=== PATIENT | male | born 1955 | race Caucasian/White ===

== ENCOUNTER 2018-03-30 21:43 | Emergency (ER) | payer OTHER ==
--- OUTSIDE RECORDS SUMMARY | 2018-03-30 21:46 | XMS REPORT | Continuity of Care Document ---
:1955 Author Organization Interface Problems Problem Status Onset Classification Date Comments Source Date Reported Unspecified Active Problem 03/07/2017 [place] hyperlipidemia [place] HTN Active Problem 03/07/2017 [place] Diabetes mellitus, Active Problem 03/07/2017 [place] not stated as [place]ris uncontrolled Chest pain, Active Problem 03/07/2017 [place] Tightness , [place]ris Pressure Medications Medication Details Route Status Patient Ordering Order Source Instructions Provider Date Allergies, Adverse Reactions, Alerts Substance Category Reaction Severity Reaction Status Date Comments Source type Reported Immunizations Immunization Date Given Site Status Last Updated Comments Source Results Order Results Value Reference Date Interpretation Comments Source Name Range Vital Signs Vital Sign Value Date Comments Source Encounters Location Location Encounter Encounter Reason Attending ADM DC Status Source Details Type Number For Provider Date Date Visit Procedures Procedure Code Date Perfomer Comments Source
--- OUTSIDE RECORDS SUMMARY | 2018-03-30 21:46 | XMS REPORT | Clinical Summary ---
:1955 Author Organization [facility] Address [address] [place] [address] Care Team Providers Name Role Phone Jose Sims MD Primary Care Provider Allergies Active Allergy Reactions Severity Noted Date Comments Sulfamethoxazole Rash Medium Tamsulosin Other (See Comments) Low 01/19/2018 colds Medications Medication Sig Dispensed Refills Start End Date Status Date insulin lispro Inject 0 Active (HUMALOG) 100 subcutaneously unit/mL injection continuous Insulin pump . buPROPion Take 150 mg by 0 Active (WELLBUTRIN XL) mouth daily. 150 MG 24 hr tablet testosterone Inject 4 mg 0 Active enanthate intramuscularly (DELATESTRYL) 200 every 7 days. mg/mL injection cholecalciferol, Take 50,000 Units 0 Active vitamin D3, by mouth once a 50,000 unit Tab week. coenzyme Q10 100 Take 100 mg by 0 Active mg capsule mouth daily. clindamycin Take 1 capsule (300 21 capsule 0 03/12/19 Discontinued (CLEOCIN) 300 MG mg total) by mouth 9 capsule 3 (three) times daily for 7 days. traMADol (ULTRAM) Take 2 tablets (100 30 tablet 0 03/22/19 50 mg tablet mg total) by mouth 9 every 6 (six) hours as needed for up to 10 days. Max Daily Amount: 400 mg docusate sodium Take 1 capsule (100 10 capsule 0 03/22/19 (COLACE) 100 MG mg total) by mouth 9 capsule 2 (two) times daily for 10 days. ciprofloxacin HCl Take 1 tablet (500 10 tablet 0 03/17/19 (CIPRO) 500 MG mg total) by mouth 9 19 tablet 2 (two) times daily for 5 days. Active Problems Problem Noted Date Erectile dysfunction 03/11/2018 Encounters Date Type Specialty Care Team Description 03/28/2018 Hospital Encounter [place] (obstructive sleep apnea); MD [place] Intolerance of continuous positive airway pressure (CPAP) ventilation 03/11/2018 Anesthesia Event Isaak Rowe MD 03/11/2018 Surgery Helio Devi, RODOLFO,YEFRI JAIME 03/11/2018 - Hospital Encounter General Internal Helio Devi, 03/12/2018 Medicine 03/06/2018 Hospital Encounter Cardiology Helio Devi MD 03/06/2018 Hospital Encounter Helio Devi MD 03/06/2018 Hospital Encounter Pre-Admission Helio Devi Testing MD 03/06/2018 Orders Only General Internal Medicine 02/27/2018 Orders Only Helio Devi MD 02/25/2018 Outside Orders Velma Duran, BATCH MIXER, [employer]ANG[employer] 02/25/2018 Orders Only Renee [place] (obstructive sleep apnea) (Primary Dx ); Velma Augustin RRT, Intolerance of continuous positive airway pressure (CPAP ) ventilation [facility] 01/19/2018 Hospital Encounter Pre-Admission Helio Devi Testing MD 01/19/2018 Outside Orders Helio Devi MD 01/19/2018 Orders Only Helio Devi MD after 03/29/2017 Social History Tobacco Use Types Packs/Day Years Used Date Never Smoker Smokeless Tobacco: Never Used Alcohol Use Drinks/Week oz/Week Comments No Alcohol Habits Answer Date Recorded How often do you have a drink containing alcohol? Never 01/19/2018 How many drinks containing alcohol do you have on a typical Not asked day when you are drinking? How often do you have six or more drinks on one occasion? Not asked Sex Assigned at Date Recorded Not on file Job Start Date Occupation Industry Not on file Not on file Not on file Travel History Travel Start Travel End No recent travel history available. Last Filed Vital Signs Vital Sign Reading Time Taken Blood Pressure 130/63 03/12/2018 11:14 AM [employer] Pulse 70 03/12/2018 11:14 AM [employer] Temperature 37.2 C (98.9 F) 03/12/2018 11:14 AM [employer] Respiratory Rate 18 03/12/2018 11:14 AM [employer] Oxygen Saturation 93% 03/12/2018 11:14 AM [employer] Inhaled Oxygen Concentration - - Weight 94.8 kg (209 lb) 03/11/2018 7:08 AM [employer] Height 182.9 cm (6') 03/11/2018 7:08 AM [employer] Body Mass Index 28.35 03/11/2018 7:08 AM [employer] Plan of Treatment Not on file Implants Implanted Type Area It Help Desk Analyst Device Shelf Model / Identifier Expiration Serial / Date Lot Kit Asm Titan Pnle Imp [id number] - [id number] Urology N/A: Penis COLOPLAST 09/28/2022 [id number] / Implanted: Qty: 1 on 03/11/2018 by Helio Devi MD A/S:COLOPLAST / [id number] [place] Titan Cl 125cc [id number] - [id number] Urology Right: COLOPLAST [id number] / Implanted: Qty: 1 on 03/11/2018 by Helio Devi MD Abdomen A/S:COLOPLAST / [id number] Titan Tch Rell Scrtl Cyl 20 [id number] - [id number] Urology N/A: Penis COLOPLAST 09/28/2022 [id number] / Implanted: Qty: 1 on 03/11/2018 by Helio Devi MD A/S:COLOPLAST / [id number] Procedures Procedure Name Priority Date/Time Associated Diagnosis Comments REPORT OF PROCEDURE - 03/28/2018 11:01 ENDOSCOPY SCAN AM [employer] POCT-GLUCOSE METER Routine 03/12/2018 7:32 Results for this AM [employer] procedure are in the results section. CBC W/PLT COUNT & Routine 03/12/2018 5:17 Results for this AUTO DIFFERENTIAL AM [employer] procedure are in the results section. CBC W/PLT COUNT & Routine 03/12/2018 5:17 Results for this AUTO DIFFERENTIAL AM [employer] procedure are in the results section. BASIC METABOLIC PANEL Routine 03/12/2018 5:17 Results for this (7) AM [employer] procedure are in the results section. POCT-GLUCOSE METER Routine 03/11/2018 10:42 Results for this PM [employer] procedure are in the results section. POCT-GLUCOSE METER Routine 03/11/2018 6:41 Results for this PM [employer] procedure are in the results section. POCT-GLUCOSE METER Routine 03/11/2018 10:35 Results for this AM [employer] procedure are in the results section. IMPLANT,GUPP 03/11/2018 8:00 Erectile AM [employer] dysfunction, unspecified erectile dysfunction type Case Notes HR Special Needs Notified Jose Antonio on 03/09 @ 0725---mp; jose antonio confirmed on 03/09 @ 0728---mp POCT-GLUCOSE METER Routine 03/11/2018 7:30 AM [employer] ECG 12-LEAD Routine 03/06/2018 4:33 PM [employer] Procedure Note - Interface, External Ris In - 03/06/2018 4:39 PM [employer] Ventricular Rate 65 BPM Atrial Rate 65 BPM P-R Interval 146 ms QRS Duration 86 ms Q-T Interval 396 ms QTC Calculation(Bazett) 411 ms P Bernard 42 degrees R Bernard 37 degrees T Bernard 3 degrees Normal sinus rhythm Normal ECG No previous ECGs available ECG 12-LEAD Routine 03/06/2018 4:33 PM [employer] URINALYSIS W/ MICROSCOPIC Routine 03/06/2018 4:29 PM [employer] HEMOGLOBIN AND HEMATOCRIT Routine 03/06/2018 4:29 PM [employer] BASIC METABOLIC PANEL (7) Routine 03/06/2018 4:29 PM [employer] URINE CULTURE Routine 03/06/2018 4:29 PM [employer] XR CHEST 2 VIEWS Routine 01/19/2018 3:35 PM [employer] URINALYSIS W/ MICROSCOPIC Routine 01/19/2018 3:13 PM [employer] URINE CULTURE Routine 01/19/2018 3:13 PM [employer] CBC W/PLT COUNT & AUTO Routine 01/19/2018 3:12 PM [employer] Results for this DIFFERENTIAL procedure are in the results section. BASIC METABOLIC PANEL (7) Routine 01/19/2018 3:12 PM [employer] CBC W/PLT COUNT & AUTO Routine 01/19/2018 3:12 PM [employer] Results for this DIFFERENTIAL procedure are in the results section. after 03/29/2017 Results EKG-SCANNED (03/28/2018 11:01 AM [employer]) Narrative Performed At POC-Glucose meter (03/12/2018 7:32 AM [employer])Only the most recent of5 resultswithin the time period is included. POC-Glucose Meter 208 (H)Comment: TESTED AT 70 - 110 mg/dL [facility] [address] [facility] [address] Specimen Blood Performing Organization Address City/State/Zipcode Phone Number [address] [address] [phone] CENTER CBC with platelet count + automated diff (03/12/2018 5:17 AM [employer])Only the most recent of2 resultswithin the time period is included. WBC 10.3 3.5 - 10.5 K/L [facility] RBC 4.50 (L) 4.63 - 6.08 M/L [facility] Hemoglobin 13.3 (L) 13.7 - 17.5 GM/DL [facility] Hematocrit 39.9 (L) 40.1 - 51.0 % [facility] MCV 88.7 79.0 - 92.2 fL [facility] MCH 29.6 25.7 - 32.2 pg [facility] MCHC 33.3 32.3 - 36.5 GM/DL [facility] RDW 13.7 11.6 - 14.4 % [facility] Platelets 173 150 - 450 K/CU MM [facility] MPV 11.0 9.4 - 12.4 fL [facility] nRBC 0 0 - 0 /100 WBC [facility] % Neutros 78 % [facility] % Lymphs 12 % [facility] % Monos 9 % [facility] % Eos 0 % [facility] % Baso 0 % [facility] # Neutros 7.98 (H) 1.78 - 5.38 K/L [facility] # Lymphs 1.27 (L) 1.32 - 3.57 K/L [facility] # Monos 0.92 (H) 0.30 - 0.82 K/L [facility] # Eos 0.03 (L) 0.04 - 0.54 K/L [facility] # Baso 0.03 0.01 - 0.08 K/L [facility] Immature Granulocytes-Relative 0 0 - 1 % [facility] Specimen Blood Performing Organization Address City/State/Zipcode Phone Number [facility] [address] [place] [address] [phone] CENTER Basic metabolic panel (03/12/2018 5:17 AM [employer])Only the most recent of3 resultswithin the time period is included. Sodium 135 (L) 136 - 145 meq/L [facility] Potassium 4.0 3.5 - 5.1 meq/L [facility] Chloride 104 98 - 107 meq/L [facility] CO2 23 22 - 29 meq/L [facility] BUN 11 7 - 21 mg/dL [facility] Creatinine 0.97 0.57 - 1.25 mg/dL [facility] Glucose 164 (H) 70 - 105 mg/dL [facility] Calcium 8.6 8.4 - 10.2 mg/dL [facility] EGFR 78Comment: ESTIMATED GFR IS mL/min/1.73 sq m [facility] NOT ACCURATE [facility] CLEARANCE IN PREDICTING GLOMERULAR FILTRATION RATE. ESTIMATED GFR IS NOT APPLICABLE FOR DIALYSIS PATIENTS. Specimen Blood Performing Organization Address City/State/[facility] Phone Number [place] [phone] [place] [address] [place] Electrocardiogram, 12-lead (03/06/2018 4:33 PM [employer]) Narrative Performed At Ventricular Rate 65 BPM GE MUSE Atrial Rate 65 BPM P-R Interval 146 ms QRS Duration 86 ms Q-T Interval 396 ms QTC Calculation(Bazett) 411 ms P Bernard 42 degrees R Bernard 37 degrees T Bernard 3 degrees Normal sinus rhythm Normal ECG No previous ECGs available Confirmed by MD GARRETT YOCHAI ([id number]) on 03/07/2018 6:24:56 AM Procedure Note Interface, External Ris In - 03/07/2018 6:25 AM [employer] Ventricular Rate 65 BPM Atrial Rate 65 BPM P-R Interval 146 ms QRS Duration 86 ms Q-T Interval 396 ms QTC Calculation(Bazett) 411 ms P Bernard 42 degrees R Bernard 37 degrees T Bernard 3 degrees Normal sinus rhythm Normal ECG No previous ECGs available Confirmed by MD GARRETT YOCHAI ([id number]) on 03/07/2018 6:24:56 AM Performing Organization Address [facility] Phone Number GE MUSE Hemoglobin and hematocrit (03/06/2018 4:29 PM [employer]) Hemoglobin 15.6 13.7 - 17.5 GM/DL [facility] Hematocrit 47.7 40.1 - 51.0 % [facility] Specimen Blood Performing Organization Address [facility] Phone Number [address] [address] [place] Urinalysis w/ Microscopic (03/06/2018 4:29 PM [employer])Only the most recent of2 resultswithin the time period is included. Color, UA Light Yellow [facility] Clarity, UA Clear [facility] Specific [place], UA 1.002 1.001 - 1.035 [facility] pH, UA 7.0 5.0 - 8.0 [facility] Protein, UA Negative Negative [facility] Glucose, UA Negative Negative [facility] Ketones, UA Negative Negative [facility] Bilirubin, UA Negative Negative [facility] Blood, UA Negative Negative [facility] Nitrite, UA Negative Negative [facility] Leukocytes, UA Negative Negative [facility] Urobilinogen, UA 0.2 0.2 - 1.0 mg/dL [facility] RBC, UA 0 /HPF [facility] WBC, UA <1 /HPF [facility] Specimen Source [facility] Specimen Urine Performing Organization Address City/[facility]/Zipcode Phone Number [address] [phone] [place] Urine culture (03/06/2018 4:29 PM [employer])Only the most recent of2 resultswithin the time period is included. Result No growth [facility] Specimen Urine - Urine, Clean Catch Performing Organization Address City/[facility]/Zipcode Phone Number [address] [phone] [place] XR chest 2 views (01/19/2018 3:35 PM [employer]) Narrative Performed At FINAL REPORT GE RIS PA and Lateral views of the chest dated 01/19/2018 Clinical information: Pre-op Comment:Heart is normal in size. Pulmonary vasculature is unremarkable. Lungs are clear. No pulmonary infiltrate or pleural effusion is present. Impression:No active cardiopulmonary disease. Signed: Stephanie Mar MD Report Verified Date/Time:01/19/2018 16:22:16 Reading Location: [address] Radiology Reading Room Procedure Note Interface, External Ris In - 01/19/2018 4:24 PM [employer] FINAL REPORT PA and Lateral views of the chest dated 01/19/2018 Clinical information: Pre-op Comment: Heart is normal in size. Pulmonary vasculature is unremarkable. Lungs are clear. No pulmonary infiltrate or pleural effusion is present. Impression: No active cardiopulmonary disease. Signed: Stephanie Mar MD Report Verified Date/Time: 01/19/2018 16:22:16 Reading Location: [address] Radiology Reading Room Performing Organization Address City/State/Zipcode Phone Number GE RIS after 03/29/2017 Insurance Payer Benefit Plan / Group Subscriber ID Type Phone Address [facility] HMO POS SELECT xxxxxxxxx HMO/POS CARE CHOICE Advance Directives For more information, please contact:[address] [phone] Code Status Date Activated Date Inactivated Comments Full Code 03/11/2018 1:24 PM This code status was determined by: Patient
--- OUTSIDE RECORDS SUMMARY | 2018-03-30 21:46 | XMS REPORT ---
:1955 Author Organization e[employer] Care Team Providers Name Role Phone Wilfredo Young Provider Role Unavailable Allergies No Known Allergies Problems Problem Type Condition Code Onset Dates Condition Status Problem Unspecified hyperlipidemia 272.4 Active Problem HTN 401.1 Active Problem Diabetes mellitus, not stated as 250.01 Active uncontrolled Problem Chest pain, Tightness , Pressure 786.59 Active Medications No Known Medications Results No Known Results Summary Purpose eClinicalWorks Submission
--- OUTSIDE RECORDS SUMMARY | 2018-03-30 21:46 | XMS REPORT ---
:1955 Author Organization [facility] Address [address] [place] [address] [address] [place] [address] Care Team Providers Name Role Phone DALJIT BERNARDO Unavailable Unavailable Problems This patient has no known problems. Allergies, Adverse Reactions, Alerts This patient has no known allergies or adverse reactions. Medications This patient has no known medications. Results Test Description Test Time Test Comments Text Results Atomic Results Result Comments POCT-GLUCOSE METER 2018-03-12 07:39:00 Test Item Value Reference Range Comments POC-GLUCOSE METER (BEAKER) (test 208 mg/dL 70-110 TESTED AT [facility] [address] [place] [address] scvy=[id number]) [facility] [id number] BASIC METABOLIC [id number] 06:33:00 Test Item Value Reference Range Comments SODIUM (BEAKER) (test 135 meq/L 136-145 kuds=077) POTASSIUM (BEAKER) (test 4.0 meq/L 3.5-5.1 wjuv=139) CHLORIDE (BEAKER) (test 104 meq/L 98-107 aeho=641) CO2 (BEAKER) (test 23 meq/L 22-29 sdad=886) BLOOD UREA NITROGEN 11 mg/dL 7-21 (BEAKER) (test hxbp=205) CREATININE (BEAKER) (test 0.97 mg/dL 0.57-1.25 rsus=802) GLUCOSE RANDOM (BEAKER) 164 mg/dL 70-105 (test weco=890) CALCIUM (BEAKER) (test 8.6 mg/dL 8.4-10.2 pemr=962) EGFR (BEAKER) (test 78 mL/min/1.73 sq m ESTIMATED GFR IS NOT swsi=9496) ACCURATE CREATININE CLEARANCE IN PREDICTING GLOMERULAR FILTRATION RATE. ESTIMATED GFR IS NOT APPLICABLE FOR DIALYSIS PATIENTS. CBC W/PLT COUNT & AUTO [id number] 05:39:00 Test Item Value Reference Range Comments WHITE BLOOD CELL COUNT (BEAKER) (test snzw=926) 10.3 K/ L 3.5-10.5 RED BLOOD CELL COUNT (BEAKER) (test yvcd=036) 4.50 M/ L 4.63-6.08 HEMOGLOBIN (BEAKER) (test ajzx=260) 13.3 GM/DL 13.7-17.5 HEMATOCRIT (BEAKER) (test bkjk=213) 39.9 % 40.1-51.0 MEAN CORPUSCULAR VOLUME (BEAKER) (test tpwp=697) 88.7 fL 79.0-92.2 MEAN CORPUSCULAR HEMOGLOBIN (BEAKER) (test 29.6 pg 25.7-32.2 bcen=758) MEAN CORPUSCULAR HEMOGLOBIN CONC (BEAKER) (test 33.3 GM/DL 32.3-36.5 kilp=006) RED CELL DISTRIBUTION WIDTH (BEAKER) (test 13.7 % 11.6-14.4 gwce=822) PLATELET COUNT (BEAKER) (test fjzi=330) 173 K/CU MM 150-450 MEAN PLATELET VOLUME (BEAKER) (test tymo=877) 11.0 fL 9.4-12.4 NUCLEATED RED BLOOD CELLS (BEAKER) (test 0 /100 WBC 0-0 njhp=742) NEUTROPHILS RELATIVE PERCENT (BEAKER) (test 78 % gglg=111) LYMPHOCYTES RELATIVE PERCENT (BEAKER) (test 12 % qyvg=438) MONOCYTES RELATIVE PERCENT (BEAKER) (test 9 % znzv=826) EOSINOPHILS RELATIVE PERCENT (BEAKER) (test 0 % uspt=735) BASOPHILS RELATIVE PERCENT (BEAKER) (test 0 % gsoa=630) NEUTROPHILS ABSOLUTE COUNT (BEAKER) (test 7.98 K/ L 1.78-5.38 jevb=825) LYMPHOCYTES ABSOLUTE COUNT (BEAKER) (test 1.27 K/ L 1.32-3.57 hryy=157) MONOCYTES ABSOLUTE COUNT (BEAKER) (test 0.92 K/ L 0.30-0.82 pvrs=349) EOSINOPHILS ABSOLUTE COUNT (BEAKER) (test 0.03 K/ L 0.04-0.54 tdmf=689) BASOPHILS ABSOLUTE COUNT (BEAKER) (test 0.03 K/ L 0.01-0.08 awsp=847) IMMATURE GRANULOCYTES-RELATIVE PERCENT (BEAKER) 0 % 0-1 (test yhzh=4412) POCT-GLUCOSE [id number] 22:52:00 Test Item Value Reference Range Comments POC-GLUCOSE METER (BEAKER) 205 mg/dL 70-110 TESTED AT [address] (test ygbr=5565) [place] [id number] POCT-GLUCOSE [id number] 18:45:00 Test Item Value Reference Range Comments POC-GLUCOSE METER (BEAKER) 172 mg/dL 70-110 TESTED AT [address] (test xpgr=3344) [place] [id number] POCT-GLUCOSE [id number] 10:37:00 Test Item Value Reference Range Comments POC-GLUCOSE METER (BEAKER) 177 mg/dL 70-110 TESTED AT [address] (test vnzb=5552) [place] [address] POCT-GLUCOSE [id number] 07:32:00 Test Item Value Reference Range Comments POC-GLUCOSE METER (BEAKER) 159 mg/dL 70-110 TESTED AT [address] (test zqzx=6329) [place] [address] URINE [id number] 11:54:00 Test Item Value Reference Range Comments CULTURE (BEAKER) (test tafa=4833) No growth BASIC METABOLIC [id number] 17:11:00 Test Item Value Reference Range Comments SODIUM (BEAKER) (test 138 meq/L 136-145 jwkq=575) POTASSIUM (BEAKER) (test 4.4 meq/L 3.5-5.1 Specimen moderately ojqf=474) hemolyzed CHLORIDE (BEAKER) (test 102 meq/L 98-107 qpoq=067) CO2 (BEAKER) (test 29 meq/L 22-29 yoyt=520) BLOOD UREA NITROGEN 15 mg/dL 7-21 (BEAKER) (test ocgi=878) CREATININE (BEAKER) (test 1.13 mg/dL 0.57-1.25 Specimen moderately ysaa=551) hemolyzed GLUCOSE RANDOM (BEAKER) 131 mg/dL 70-105 (test pnxf=178) CALCIUM (BEAKER) (test 9.7 mg/dL 8.4-10.2 yguk=056) EGFR (BEAKER) (test 66 mL/min/1.73 sq m ESTIMATED GFR IS NOT qfsr=1361) ACCURATE CREATININE CLEARANCE IN PREDICTING GLOMERULAR FILTRATION RATE. ESTIMATED GFR IS NOT APPLICABLE FOR DIALYSIS PATIENTS. URINALYSIS W/ [id number] 16:58:00 Test Item Value Reference Range Comments COLOR (BEAKER) (test qjro=261) Light Yellow CLARITY (BEAKER) (test yskk=549) Clear SPECIFIC GRAVITY UA (BEAKER) (test yxtj=878) 1.002 1.001-1.035 PH UA (BEAKER) (test levt=382) 7.0 5.0-8.0 PROTEIN UA (BEAKER) (test jsbp=329) Negative Negative GLUCOSE UA (BEAKER) (test yyqg=203) Negative Negative KETONES UA (BEAKER) (test lttc=052) Negative Negative BILIRUBIN UA (BEAKER) (test tmam=527) Negative Negative BLOOD UA (BEAKER) (test ifig=486) Negative Negative NITRITE UA (BEAKER) (test atre=937) Negative Negative LEUKOCYTE ESTERASE UA (BEAKER) (test skpd=221) Negative Negative UROBILINOGEN UA (BEAKER) (test ejet=495) 0.2 mg/dL 0.2-1.0 RBC UA (BEAKER) (test kcpi=505) 0 /HPF WBC UA (BEAKER) (test friz=064) < /HPF SOURCE(BEAKER) (test hoke=6955) HEMOGLOBIN AND [id number] 16:53:00 Test Item Value Reference Range Comments HEMOGLOBIN (BEAKER) (test recv=180) 15.6 GM/DL 13.7-17.5 HEMATOCRIT (BEAKER) (test wkcx=676) 47.7 % 40.1-51.0 URINE [id number] 14:09:00 Test Item Value Reference Range Comments CULTURE (BEAKER) (test ENTEROCOCCUS SPECIES 10-19,000 col/mL mgdv=8856) Enterococcus species Ampicillin (test code=26) Linezolid (test code=40) Nitrofurantoin (test code=23) Tetracycline (test code=2) Vancomycin (test code=13) URINALYSIS W/ [id number] 16:22:00 Test Item Value Reference Range Comments COLOR (BEAKER) (test qqzc=625) Yellow CLARITY (BEAKER) (test muxn=863) Clear SPECIFIC GRAVITY UA (BEAKER) (test saph=086) 1.015 1.001-1.035 PH UA (BEAKER) (test fvnb=432) 6.5 5.0-8.0 PROTEIN UA (BEAKER) (test brmp=977) Negative Negative GLUCOSE UA (BEAKER) (test oqzi=776) Negative Negative KETONES UA (BEAKER) (test nqxx=800) Negative Negative BILIRUBIN UA (BEAKER) (test noxu=834) Negative Negative BLOOD UA (BEAKER) (test yayj=715) Small Negative NITRITE UA (BEAKER) (test gqsq=407) Negative Negative LEUKOCYTE ESTERASE UA (BEAKER) (test djxz=613) Negative Negative UROBILINOGEN UA (BEAKER) (test pdje=577) 0.2 mg/dL 0.2-1.0 RBC UA (BEAKER) (test yeog=220) 4 /HPF WBC UA (BEAKER) (test hvzy=395) < /HPF SOURCE(BEAKER) (test cxbg=9950) RAD, CHEST, 2 [id number] 16:22:00Reason for exam:->Pre-opFINAL REPORT PA and Lateral views of the chest dated 01/19/2018 Clinical information: Pre-op Comment: Heart is normal in size. Pulmonary vasculature is unremarkable. Lungs are clear. No pulmonary infiltrate or pleural effusion is present. Impression: No active cardiopulmonary disease. Signed: Stephanie Mar Verified Date/Time: 01/19/2018 16:22:16 Reading Location: [address] Radiology Reading Room BASI METABOLIC [id number] 16:09: 00 Test Item Value Reference Range Comments SODIUM (BEAKER) (test 138 meq/L 136-145 kjgf=685) POTASSIUM (BEAKER) (test 4.2 meq/L 3.5-5.1 Specimen slightly sgcy=158) hemolyzed CHLORIDE (BEAKER) (test 101 meq/L 98-107 zcac=889) CO2 (BEAKER) (test 28 meq/L 22-29 ctnj=760) BLOOD UREA NITROGEN 17 mg/dL 7-21 (BEAKER) (test tznp=820) CREATININE (BEAKER) (test 1.22 mg/dL 0.57-1.25 Specimen slightly woqw=957) hemolyzed GLUCOSE RANDOM (BEAKER) 120 mg/dL 70-105 (test syks=832) CALCIUM (BEAKER) (test 9.8 mg/dL 8.4-10.2 ktkm=079) EGFR (BEAKER) (test 60 mL/min/1.73 sq m ESTIMATED GFR IS NOT lllf=7306) ACCURATE CREATININE CLEARANCE IN PREDICTING GLOMERULAR FILTRATION RATE. ESTIMATED GFR IS NOT APPLICABLE FOR DIALYSIS PATIENTS. CBC W/PLT COUNT & AUTO [id number] 15:58:00 Test Item Value Reference Range Comments WHITE BLOOD CELL COUNT (BEAKER) (test jgmr=470) 6.8 K/ L 3.5-10.5 RED BLOOD CELL COUNT (BEAKER) (test ilav=110) 5.43 M/ L 4.63-6.08 HEMOGLOBIN (BEAKER) (test hfyp=670) 16.1 GM/DL 13.7-17.5 HEMATOCRIT (BEAKER) (test wiyn=302) 48.4 % 40.1-51.0 MEAN CORPUSCULAR VOLUME (BEAKER) (test zqce=123) 89.1 fL 79.0-92.2 MEAN CORPUSCULAR HEMOGLOBIN (BEAKER) (test 29.7 pg 25.7-32.2 ltcp=371) MEAN CORPUSCULAR HEMOGLOBIN CONC (BEAKER) (test 33.3 GM/DL 32.3-36.5 tmyb=933) RED CELL DISTRIBUTION WIDTH (BEAKER) (test 14.5 % 11.6-14.4 xklk=952) PLATELET COUNT (BEAKER) (test tnnl=227) 223 K/CU MM 150-450 MEAN PLATELET VOLUME (BEAKER) (test azbt=198) 11.4 fL 9.4-12.4 NUCLEATED RED BLOOD CELLS (BEAKER) (test 0 /100 WBC 0-0 botv=548) NEUTROPHILS RELATIVE PERCENT (BEAKER) (test 65 % tcpu=844) LYMPHOCYTES RELATIVE PERCENT (BEAKER) (test 24 % vdlp=451) MONOCYTES RELATIVE PERCENT (BEAKER) (test 8 % xags=251) EOSINOPHILS RELATIVE PERCENT (BEAKER) (test 2 % hspi=494) BASOPHILS RELATIVE PERCENT (BEAKER) (test 1 % sgvj=832) NEUTROPHILS ABSOLUTE COUNT (BEAKER) (test 4.39 K/ L 1.78-5.38 pzvo=851) LYMPHOCYTES ABSOLUTE COUNT (BEAKER) (test 1.63 K/ L 1.32-3.57 xonf=237) MONOCYTES ABSOLUTE COUNT (BEAKER) (test 0.55 K/ L 0.30-0.82 wime=454) EOSINOPHILS ABSOLUTE COUNT (BEAKER) (test 0.13 K/ L 0.04-0.54 zvob=893) BASOPHILS ABSOLUTE COUNT (BEAKER) (test 0.05 K/ L 0.01-0.08 gtqd=811) IMMATURE GRANULOCYTES-RELATIVE PERCENT (BEAKER) 1 % 0-1 (test wibz=7794)
[2018-03-30] MEDS ORDERED: AZITHROMYCIN 250 MG TAB ONE (23:28)
--- NOTE | 2018-03-30 23:29 | ER ---
Nurse's Notes [facility] Name: Rajesh Moreira Age: 62 yrs Sex: Male : 1955 Arrival Date: 03/30/2018 Time: 22:13 Bed 19 Private MD: Diagnosis: Bronchitis, not specified as acute or chronic Presentation: 03/30 22:21 Presenting complaint: Patient states: he had recent surgery Mar 11 for a penile implant bb and started coughing today, feeling weak with mild pain in his legs and is concerned about an infection. Transition of care: patient was not received from another setting of care. Onset of symptoms was March 30, 2018. Risk Assessment: Do you want to hurt yourself or someone else? Patient reports no desire to harm self or others. Initial Sepsis Screen: Does the patient meet any 2 criteria? No. Patient's initial sepsis screen is negative. Does the patient have a suspected source of infection? No. Patient's initial sepsis screen is negative. Care prior to arrival: None. 22:21 Method Of Arrival: Ambulatory bb 22:21 Acuity: HOLLI 3 bb Historical: - Allergies: 22:24 Bactrim; bb - Home Meds: 22:24 Humalog Sub-Q [Active]; Novolog Sub-Q [Active]; testosterone [Active]; Vit C [Active]; bb Susan Oral [Active]; - PMHx: 22:24 Diabetes - IDDM; bb - PSHx: 22:24 Hernia repair; Knee surgery; penile implant; bb - Immunization history:: Adult Immunizations up to date, Flu vaccine is up to date. - Social history:: Smoking status: Patient/guardian denies using tobacco, Patient/guardian denies using alcohol, street drugs, Patient/guardian denies using The patient lives with family. - Ebola Screening: : No symptoms or risks identified at this time. - Family history:: not pertinent. Screenin:30 Abuse screen: Denies threats or abuse. Nutritional screening: No deficits noted. jb4 Tuberculosis screening: No symptoms or risk factors identified. Fall Risk None identified. Assessment: 22:30 General: Appears in no apparent distress. comfortable, Behavior is calm, cooperative, jb4 appropriate for age. Pain: Complains of pain in right leg and left leg Pain does not radiate. Pain currently is 2 out of 10 on a pain scale. Neuro: Level of Consciousness is awake, alert, obeys commands, Oriented to person, place, time, situation. Cardiovascular: Patient's skin is warm and dry. Respiratory: Reports cough that is non-productive, since This morning. Airway is patent Respiratory effort is even, unlabored, Respiratory pattern is regular, symmetrical, Breath sounds are clear bilaterally. GI: No signs and/or symptoms were reported involving the gastrointestinal system. : No signs and/or symptoms were reported regarding the genitourinary system. EENT: No signs and/or symptoms were reported regarding the EENT system. Derm: Skin is intact, Skin is pink, warm \T\ dry. Musculoskeletal: Circulation, motion, and sensation intact. 23:53 Reassessment: Patient appears in no apparent distress at this time. Patient and/or jb4 family updated on plan of care and expected duration. Pain level reassessed. Patient is alert, oriented x 3, equal unlabored respirations, skin warm/dry/pink. Vital Signs: 22:24 BP 142 / 81; Pulse 78; Resp 16 S; Temp 99(O); Pulse Ox 96% on R/A; Weight 93.89 kg (R); bb Height 6 ft. 0 in. (182.88 cm) (R); Pain 2/10; 23:53 BP 150 / 80; Pulse 79; Resp 16; Pulse Ox 98% on R/A; jb4 22:24 Body Mass Index 28.07 (93.89 kg, 182.88 cm) ED Course: 22:13 Patient arrived in ED. es 22:22 Triage completed. bb 22:24 Arm band placed on Patient placed in an exam room, on a stretcher, on pulse oximetry. bb 22:30 Patient has correct armband on for positive identification. Bed in low position. Call jb4 light in reach. Side rails up X 1. Pulse ox on. NIBP on. 22:51 Robi Perez RN is Primary Nurse. jb4 22:55 Emmanuel Contreras MD is Attending Physician. ma2 23:54 No provider procedures requiring assistance completed. Patient did not have IV access jb4 during this emergency room visit. Administered Medications: 23:19 Drug: AZITHromycin 500 mg Route: PO; jb4 23:54 Follow up: Response: No adverse reaction jb4 Outcome: 23:28 Discharge ordered by . saulo 23:54 Discharged to home ambulatory. jb4 23:54 Condition: stable 23:54 Discharge instructions given to patient, Instructed on discharge instructions, follow up and referral plans. medication usage, Demonstrated understanding of instructions, follow-up care, medications, Prescriptions given X 3. 23:56 Patient left the ED. jb4 Signatures: Iris Dey Brenda, RN RN Robi Soto RN RN jb4 Emmanuel Contreras MD MD ma2
--- NOTE | 2018-03-30 23:29 | EDPHYS ---
Physician Documentation [facility] Name: Rajesh Moreira Age: 62 yrs Sex: Male : 1955 Arrival Date: 03/30/2018 Time: 22:13 Bed 19 Private MD: ED Physician Emmanuel Contreras HPI: 03/30 23:26 This 62 yrs old Male presents to ER via Ambulatory with complaints of Cough. ma2 23:26 Onset: The symptoms/episode began/occurred gradually, 1 day(s) ago. Severity of ma2 symptoms: At their worst the symptoms were moderate, in the emergency department the symptoms are unchanged. Associated signs and symptoms: Pertinent positives: rhinorrhea, Pertinent negatives: chest pain, fever, rhinorrhea, vomiting. The patient has not experienced similar symptoms in the past. here with dry cough . Historical: - Allergies: 22:24 Bactrim; bb - Home Meds: 22:24 Humalog Sub-Q [Active]; Novolog Sub-Q [Active]; testosterone [Active]; Vit C [Active]; bb Susan Oral [Active]; - PMHx: 22:24 Diabetes - IDDM; bb - PSHx: 22:24 Hernia repair; Knee surgery; penile implant; bb - Immunization history:: Adult Immunizations up to date, Flu vaccine is up to date. - Social history:: Smoking status: Patient/guardian denies using tobacco, Patient/guardian denies using alcohol, street drugs, Patient/guardian denies using The patient lives with family. - Ebola Screening: : No symptoms or risks identified at this time. - Family history:: not pertinent. ROS: 23:26 Constitutional: Negative for fever, chills, and weight loss, Cardiovascular: Negative ma2 for chest pain, palpitations, and edema, Respiratory: Negative for shortness of breath, cough, wheezing, and pleuritic chest pain, Abdomen/GI: Negative for abdominal pain, nausea, diarrhea, and constipation, MS/Extremity: Negative for injury and deformity. 23:26 Respiratory: Positive for cough, Negative for hemoptysis, pleurisy, sputum production, wheezing. 23:26 All other systems are negative. Exam: 23:26 Constitutional: This is a well developed, well nourished patient who is awake, alert, ma2 and in no acute distress. ENT: Nares patent. No nasal discharge, no septal abnormalities noted. Tympanic membranes are normal and external auditory canals are clear. Oropharynx with no redness, swelling, or masses, exudates, or evidence of obstruction, uvula midline. Mucous membranes moist. Chest/axilla: Normal chest wall appearance and motion. Nontender with no deformity. No lesions are appreciated. Cardiovascular: Regular rate and rhythm with a normal S1 and S2. No gallops, murmurs, or rubs. Normal PMI, no JVD. No pulse deficits. Respiratory: Lungs have equal breath sounds bilaterally, clear to auscultation and percussion. No rales, rhonchi or wheezes noted. No increased work of breathing, no retractions or nasal flaring. Abdomen/GI: Soft, non-tender, with normal bowel sounds. No distension or tympany. No guarding or rebound. No evidence of tenderness throughout. MS/ Extremity: Pulses equal, no cyanosis. Neurovascular intact. Full, normal range of motion. Neuro: Awake and alert, GCS 15, oriented to person, place, time, and situation. Cranial nerves II-XII grossly intact. Motor strength 5/5 in all extremities. Sensory grossly intact. Cerebellar exam normal. Normal gait. Vital Signs: 22:24 BP 142 / 81; Pulse 78; Resp 16 S; Temp 99(O); Pulse Ox 96% on R/A; Weight 93.89 kg (R); bb Height 6 ft. 0 in. (182.88 cm) (R); Pain 2/10; 23:53 BP 150 / 80; Pulse 79; Resp 16; Pulse Ox 98% on R/A; jb4 22:24 Body Mass Index 28.07 (93.89 kg, 182.88 cm) bb MDM: 22:55 Patient medically screened. ma2 23:26 Differential Diagnosis: Bronchitis Influenza Upper Respiratory Infection Sinusitis. ma2 Data reviewed: vital signs, nurses notes. Counseling: I had a detailed discussion with the patient and/or guardian regarding: the historical points, exam findings, and any diagnostic results supporting the discharge/admit diagnosis, the presence of at least one elevated blood pressure reading (>120/80) during this emergency department visit, the need for outpatient follow up. Response to treatment: the patient's symptoms have mildly improved after treatment. 03/30 23:10 Order name: Influenza Screen (a \T\ B) ma2 Administered Medications: 23:19 Drug: AZITHromycin 500 mg Route: PO; jb4 23:54 Follow up: Response: No adverse reaction jb4 Disposition: 03/30/18 23:28 Discharged to Home. Impression: Bronchitis, not specified as acute or chronic. - Condition is Stable. - Discharge Instructions: Acute Bronchitis, Adult. - Prescriptions for Tylenol- Codeine #3 300-30 mg Oral Tablet - take 2 tablet by ORAL route every 6 hours As needed; 30 tablet. Zithromax Z- Maxi 250 mg Oral Tablet - take 1 tablet by ORAL route as directed for 5 days Day 1 - take two (2) tablets one time. Day 2, 3, 4 , 5 take one (1) tablet once daily.; 6 tablet. Medrol (Maxi) 4 mg Oral Tablets, Dose Pack - take 1 tablet by ORAL route as directed - follow package instructions; 1 packet. - Medication Reconciliation Form, Thank You Letter, Antibiotic Education, Prescription Opioid Use form. - Follow up: Private Physician; When: Tomorrow; Reason: Continuance of care. Signatures: Dispatcher [employer] EDSherice Gomes RN RN Robi Soto RN RN jb4 Emmanuel Contreras MD MD ma2 Corrections: (The following items were deleted from the chart) 23:56 23:28 03/30/2018 23:28 Discharged to Home. Impression: Bronchitis, not specified as jb4 acute or chronic. Condition is Stable. Forms are Medication Reconciliation Form, Thank You Letter, Antibiotic Education, Prescription Opioid Use. Follow up: Private Physician; When: Tomorrow; Reason: Continuance of care. ma2
== END 2018-03-30 23:56 | disposition home or self-care (01) ==
LOC: ER 21:43
DX: J40 Bronchitis, not specified as acute or chronic (principal); E11.9 Type 2 diabetes mellitus without complications; Z79.4 Long term (current) use of insulin
CPT/HCPCS: 87804; 99283